=== PATIENT | male | born 1985 ===

== ENCOUNTER 2018-07-02 19:35 | Emergency (ER) | payer OTHER ==
[2018-07-02] MEDS ORDERED: Acetaminophen/HYDROcodone 325-10 MG Tab PO ONE (19:36)
[2018-07-02] MEDS ORDERED: Clindamycin HCl 150 MG Cap PO ONE (20:35)
--- NOTE | 2018-07-02 20:43 | EDM.PDOC ---
ED HPI GENERAL MEDICAL PROBLEM - General Stated Complaint: TOOTH ACHE Time Seen by Provider: 07/02/18 20:40 Source of Information: Reports: Patient History Limitations: Reports: No Limitations - History of Present Illness INITIAL COMMENTS - FREE TEXT/NARRATIVE: broke tooth ED ROS ENT - Review of Systems Review Of Systems: ROS reveals no pertinent complaints other than HPI. ED EXAM, ENT - Physical Exam Exam: See Below Exam Limited By: No Limitations General Appearance: Alert, WD/WN, Mild Distress, Moderate Distress, Other (pain) Ears: Hearing Grossly Normal Mouth/Throat: Dental Abcess, Dental Pain, Dental Tenderness Head: Atraumatic Neck: Non-Tender, Full Range of Motion Respiratory/Chest: No Respiratory Distress Cardiovascular: Regular Rate, Rhythm GI/Abdominal: Soft, Non-Tender Neurological: Alert, Oriented, Normal Cognition, Normal Gait, No Motor/Sensory Deficits Psychiatric: Tearful Skin: Warm, Dry, Normal Color Lymphatic: No Adenopathy Course - Vital Signs Last Recorded V/S: Last Vital Signs Temp 36.5 C 07/02/18 20:30 Pulse 76 07/02/18 20:30 Resp 16 07/02/18 20:30 BP 154/109 H 07/02/18 20:30 Pulse Ox 100 07/02/18 20:30 - Orders/Labs/Meds Meds: Medications Discontinued Medications Generic Name Dose Route Start Last Admin Trade Name Marinoq PRN Reason Stop Dose Admin Clindamycin HCl 300 mg 07/02/18 20:35 Cleocin PO 07/02/18 20:36 ONETIME ONE Departure - Departure Time of Disposition: 20:41 Disposition: Home, Self-Care 01 Condition: Good Clinical Impression: Dental abscess, Dental decay - Discharge Information Instructions: Dental Abscess, [id number] Additional Instructions: 1) avoid solid foods 2) see DENTIST rx given; clindamycin 300mg qid x 40 vicodin 5/325mg tid prn x 12
[2018-07-02] MEDS ORDERED: Acetaminophen/HYDROcodone 325-10 MG Tab ONE (20:45)
== END 2018-07-02 20:54 | disposition home or self-care (01) ==
LOC: DL.ED 19:35
DX: K04.7 Periapical abscess without sinus (principal)
CPT/HCPCS: 99282; A9270

== ENCOUNTER 2020-06-03 16:33 | Emergency (ER) | payer OTHER ==
--- NOTE | 2020-06-03 17:23 | CR ---
PROCEDURE INFORMATION: Exam: XR Chest, 1 View Exam date and time: 06/03/2020 5:18 PM Age: 35 years old Clinical indication: Chest pain; Type not specified TECHNIQUE: Imaging protocol: XR of the chest Views: 1 view. COMPARISON: No relevant prior studies available. FINDINGS: Lungs: Unremarkable. No consolidation. Pleural space: Unremarkable. No pleural effusion. No pneumothorax. Heart/Mediastinum: Unremarkable. No cardiomegaly. Bones/joints: Unremarkable. IMPRESSION: No acute findings.
[2020-06-03 17:51] LABS: ANION GAP 12.4 mEq/L (7-13); CHLORIDE,CL 100 mmol/L (98-107); SODIUM,NA 139 mmol/L (136-145)
--- NOTE | 2020-06-03 18:16 | EDM.PDOC ---
ED HPI GENERAL MEDICAL PROBLEM - General Chief Complaint: Chest Pain Stated Complaint: CHEST PAIN Time Seen by Provider: 06/03/20 17:20 Source of Information: Reports: Patient, RN, RN Notes Reviewed History Limitations: Reports: No Limitations - History of Present Illness INITIAL COMMENTS - FREE TEXT/NARRATIVE: Patient presents to the ED via personal vehicle with complaints of chest pain. The patient states the pain began approximately two hours prior to his arrival to the ED today, and persisted four about 45 minutes. He states he has experienced this pain multiple times before but he grew concerned when the pain lasted longer than it normally has. He did not take any medications for this pain, it spontaneously occurred and dissipated. He denies any health history of acute cardiac events; he takes Lisinopril and Rosuvastatin daily. He denies fever, shaking chills, recent illness, headache, vision changes, palpitations, shortness of breath, dyspepsia, nausea, vomiting, or diarrhea. He states he is not currently experiencing pain. He denies tobacco, alcohol, or recreational drug use. - Related Data Allergies Allergy/AdvReac Type Severity Reaction Status Date / Time sulfamethoxazole Allergy Cannot Verified 06/03/20 17:02 [From Bactrim] Remember trimethoprim [From Bactrim] Allergy Cannot Verified 06/03/20 17:02 Remember Home Meds: Home Meds Lisinopril 20 mg PO DAILY 07/02/18 [History] Rosuvastatin Calcium 5 mg PO DAILY 07/02/18 [History] Past Medical History HEENT History: Reports: Other (See Below) Other HEENT History: previous cracked tooth on left side of lower jaw Cardiovascular History: Reports: High Cholesterol, Hypertension Respiratory History: Reports: None Gastrointestinal History: Reports: None Genitourinary History: Reports: None Social & Family History - Family History Family Medical History: No Pertinent Family History - Tobacco Use Tobacco Use Status *Q: Never Tobacco User - Caffeine Use Caffeine Use: Reports: Coffee, Tea - Recreational Drug Use Recreational Drug Use: No ED ROS GENERAL - Review of Systems Review Of Systems: Comprehensive ROS is negative, except as noted in HPI. ED EXAM, GENERAL - Physical Exam Exam: See Below Exam Limited By: No Limitations General Appearance: Alert, WD/WN, No Apparent Distress Eye Exam: Bilateral Eye: EOMI, Normal Inspection, PERRL (3mm) Throat/Mouth: Normal Inspection, Normal Voice, No Airway Compromise Head: Atraumatic, Normocephalic Neck: Normal Inspection, Supple, Non-Tender, Full Range of Motion. No: Lymphadenopathy (L), Lymphadenopathy (R) Respiratory/Chest: No Respiratory Distress, Lungs Clear, Normal Breath Sounds, No Accessory Muscle Use, Chest Non-Tender Cardiovascular: Normal Peripheral Pulses, Regular Rate, Rhythm, No Edema, No Gallop, No JVD, No Murmur, No Rub Peripheral Pulses: 2+: Radial (L), Radial (R), Dorsalis Pedis (L), Dorsalis Pedis (R) GI/Abdominal: Normal Bowel Sounds, Soft, Non-Tender, No Organomegaly, No Mass (Male) Exam: Deferred Rectal (Males) Exam: Deferred Back Exam: Normal Inspection, Full Range of Motion Extremities: Normal Inspection, Normal Range of Motion, Non-Tender, Normal Capillary Refill, No Pedal Edema Neurological: Alert, Oriented, CN II-XII Intact, Normal Cognition, Normal Gait, No Motor/Sensory Deficits Psychiatric: Normal Affect, Normal Mood Skin Exam: Warm, Dry, Intact, Normal Color, No Rash. No: Ecchymosis, Erythema, Mottled, Pallor, Petechiae Course - Vital Signs Last Recorded V/S: Last Vital Signs Temp 98 F 06/03/20 16:59 Pulse 77 06/03/20 16:59 Resp 14 06/03/20 16:59 BP 135/98 H 06/03/20 16:59 Pulse Ox 100 06/03/20 16:59 - Orders/Labs/Meds Labs: Laboratory Tests 06/03/20 06/03/20 06/03/20 Range/Units 16:55 16:55 16:55 WBC 8.4 (5.0-10.0) 10^3/uL RBC 5.68 (4.6-6.2) 10^6/uL Hgb 15.9 (14.0-18.0) g/dL Hct 45.7 (40.0-54.0) % MCV 80.5 (80-100) fL MCH 28.0 (27.0-34.0) pg MCHC 34.8 (33.0-35.0) g/dL Plt Count 311 (150-450) 10^3/uL Neut % (Auto) 54.1 (42.2-75.2) % Lymph % (Auto) 33.2 (20.5-50.1) % Mccone % (Auto) 10.7 H (2-8) % Eos % (Auto) 1.6 (1.0-3.0) % Baso % (Auto) 0.4 (0.0-1.0) % D-Dimer, Quantitative 107 (0-400) ng/mL Sodium 139 (136-145) mmol/L Potassium 3.4 L (3.5-5.1) mmol/L Chloride 100 (98-107) mmol/L Carbon Dioxide 30 (21-32) mmol/L Anion Gap 12.4 (7-13) mEq/L BUN 15 (7-18) mg/dL Creatinine 1.04 (0.70-1.30) mg/dL Est Cr Clr Drug Dosing 104.31 mL/min Estimated GFR (MDRD) > 60 BUN/Creatinine Ratio 14.4 (No establ ref range) Glucose 93 (74-99) mg/dL Lactic Acid (0.4-2.0) mmol/L Calcium 9.3 (8.5-10.1) mg/dL Total Bilirubin 0.6 (0.2-1.0) mg/dL AST 31 (15-37) U/L ALT 68 H (16-63) U/L Alkaline Phosphatase 86 (46-116) U/L Troponin I < 0.017 (0.000-0.056) ng/mL B-Natriuretic Peptide < 5 (0-100) pg/ml Total Protein 8.5 H (6.4-8.2) g/dL Albumin 4.6 (3.4-5.0) g/dL Globulin 3.9 Albumin/Globulin Ratio 1.2 Amylase 60 (25-115) U/L Lipase 154 (73-393) U/L /29/20 Range/Units 16:55 WBC (5.0-10.0) 10^3/uL RBC (4.6-6.2) 10^6/uL Hgb (14.0-18.0) g/dL Hct (40.0-54.0) % MCV (80-100) fL MCH (27.0-34.0) pg MCHC (33.0-35.0) g/dL Plt Count (150-450) 10^3/uL Neut % (Auto) (42.2-75.2) % Lymph % (Auto) (20.5-50.1) % Mccone % (Auto) (2-8) % Eos % (Auto) (1.0-3.0) % Baso % (Auto) (0.0-1.0) % D-Dimer, Quantitative (0-400) ng/mL Sodium (136-145) mmol/L Potassium (3.5-5.1) mmol/L Chloride (98-107) mmol/L Carbon Dioxide (21-32) mmol/L Anion Gap (7-13) mEq/L BUN (7-18) mg/dL Creatinine (0.70-1.30) mg/dL Est Cr Clr Drug Dosing mL/min Estimated GFR (MDRD) BUN/Creatinine Ratio (No establ ref range) Glucose (74-99) mg/dL Lactic Acid 0.8 (0.4-2.0) mmol/L Calcium (8.5-10.1) mg/dL Total Bilirubin (0.2-1.0) mg/dL AST (15-37) U/L ALT (16-63) U/L Alkaline Phosphatase (46-116) U/L Troponin I (0.000-0.056) ng/mL B-Natriuretic Peptide (0-100) pg/ml Total Protein (6.4-8.2) g/dL Albumin (3.4-5.0) g/dL Globulin Albumin/Globulin Ratio Amylase (25-115) U/L Lipase (73-393) U/L - Radiology Interpretation Free Text/Narrative:: [facility] Final Radiology Report Call: [phone] assistance Online chat: [email or web address] Name: NIECY LUO Age: 35Years M Date: 06/03/2020 SSN: -- : [id number] Study: CR CHEST 1V FRONTAL Requesting Physician: Malka White Images: 1 Addl Studies: Provided Clinical History: Chest pain Contrast: Contrast Medium: Contrast Amount: Contrast Method: CONFIDENTIALITY STATEMENT This report is intended only for use by the referring physician, and only in accordance with law. If you received this in error, call [phone]. Page 1 of 1 PROCEDURE INFORMATION: Exam: XR Chest, 1 View Exam date and time: 06/03/2020 5:18 PM Age: 35 years old Clinical indication: Chest pain; Type not specified TECHNIQUE: Imaging protocol: XR of the chest Views: 1 view. COMPARISON: No relevant prior studies available. FINDINGS: Lungs: Unremarkable. No consolidation. Pleural space: Unremarkable. No pleural effusion. No pneumothorax. Heart/Mediastinum: Unremarkable. No cardiomegaly. Bones/joints: Unremarkable. IMPRESSION: No acute findings. Thank you for allowing us to participate in the care of your patient. Dictated and Authenticated by: Primitivo Adam DO 06/03/2020 5:23 PM Central Time ([place] & [place]) - Re-Assessments/Exams Free Text/Narrative Re-Assessment/Exam: 06/03/20 Cardiac workup unremarkable for acute processes. Amylase/Lipase/Liver functions WNL. Counseled patient on the importance of continued antilipid and antihypertensive medications. Patient instructed to follow up with primary care provider early next week to discuss possibility of gastroenterology referral to investigate for GERD vs ulcer. Patient verbalized understanding and agreement with the plan of care. Departure - Departure Time of Disposition: 18:23 Disposition: Home, Self-Care 01 Condition: Good Clinical Impression: Atypical chest pain Instructions: Nonspecific Chest Pain, Adult, [id number] Referrals: Audrey Lopez MD [Primary Care Provider] - Forms: ED Department Discharge Additional Instructions: 1.) Follow up with your primary care provider regarding today's visit; consider gastroenterology referral for further investigation into ongoing pain. 2.) Eat a bland diet as pain persists, avoid spicy, greasy, high-fat foods. 3.) Drink plenty of water to stay hydrated. 4.) Return to the emergency room with chest pain or shortness of breath that persists Sepsis Event Note (ED) - Evaluation Sepsis Screening Result: No Definite Risk
== END 2020-06-03 18:35 | disposition home or self-care (01) ==
LOC: DL.ED 16:33
DX: R07.89 Other chest pain (principal); E78.00 Pure hypercholesterolemia, unspecified; I10 Essential (primary) hypertension; Z88.2 Allergy status to sulfonamides; Z79.899 Other long term (current) drug therapy
CPT/HCPCS: 36415; 71045; 80053; 82150; 83605; 83690; 83880; 84484; 85025; 85379; 93005; 99285-25